=== PATIENT | female | born 1940 | race Caucasian/White ===

== ENCOUNTER 2023-12-21 12:55 | Emergency (ER) | payer MEDICARE, BC, MEDICAID, SELFPAY ==
--- NOTE | 2023-12-21 12:56 | XR_ITS ---
WS: [id number] Left hip, 2 views, AP pelvis, 12/21/2023 Clinical Data: injury Comparison: None. Findings: No fractures or dislocations are seen the left hip shows no fracture, erosion, narrowing, sclerosis o r fragmentation of the left femoral head. There is a left acetabular lip. The right acetabulum shows an acetabular lip. The soft tissues are not remarkable. The adjacent pelvis is normal. Impression: 1. Negative for left hip fracture. 2. 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 Tonnis classification: grade 1: sclerosis of femoral head and acetabulum or slight joint space narrow ing or slight lipping at joint margins
[2023-12-21 13:18] VITALS: BP 163/90; PULSE 83; RESP 18; TEMP 36.6; O2SAT 98
--- NOTE | 2023-12-21 13:53 | W.ED.EXTPRO ---
HPI - Extremity Problem General: Chief complaint: Extremity Injury, Lower Stated complaint: left side hip pains, sob Time Seen by Provider: 12/21/23 13:38 Source: patient and family Mode of arrival: wheelchair Limitations: no limitations History of Present Illness: Patient is a nice 83-year-old female presents to ED today along with her with a complaint of left hip pain. Patient states she is having a burning sensation to the left hip. She states it does seem to start near her left lower back and radiates down into the buttock. She states sometimes she will have pain shooting down her left leg. Pain seems to be worse with attempting ambulation. She has not noticed any numbness, tingling, loss of sensation to the leg. No saddle anesthesia or bowel or bladder dysfunction. She has not noticed any swelling to the leg. No color or temperature changes noted. Patient tells me she has not had any direct injury or trauma to the hip however triage note states that patient may have experienced a fall approximately a week ago. MD Complaint: joint pain Onset (ago): day(s) Pain Consistency: constant Location: left and lower extremity Quality: burning Radiation: distal Relieving factors: immobilization Exacerbating factors: weight bearing and walking Associated symptoms: Reports no associated symptoms; Deny chest pain, fever(s) or rash Review of Systems Const: Denies: fever(s), chills, body aches, fatigue or malaise Card: Denies: chest pain Resp: Denies: dyspnea GI: Denies: abdominal pain : Denies: flank pain, dysuria or hematuria Musc: Reports: back pain and joint pain; Denies: neck pain, extremity pain, extremity swelling, joint swelling, joint redness or joint warmth Skin/Breast: Denies: rash Neuro: Reports: difficulty walking; Denies: headache(s), numbness in extremities, weakness in extremities or sensory changes PFS ED PFSH: Medical History HTN (hypertension) Surgical History No pertinent past surgical history Physical Exam Const: COMMON NORMALS: average body habitus, no limitations, healthy appearing and well nourished GENERAL APPEARANCE: cooperative, well kempt, well developed and in distress (appears uncomfortable secondary to pain) Resp: COMMON NORMALS: normal respiratory effort and clear to auscultation bilaterally AUSCULTATION: clear to auscultation bilaterally Cardio: COMMON NORMALS: regular rate and regular rhythm RATE: regular rate RHYTHM: regular rhythm GI: COMMON NORMALS: Normal to inspection, nondistended, normoactive bowel sounds present, Soft to palpation and non-tender PALPATION: Yes Soft to palpation : COMMON NORMALS: Yes no CVA tenderness BLADDER/KIDNEY EXAM: Yes no CVA tenderness Back/Pelvis: COMMON NORMALS: no CVA tenderness, thoracic and lumbar spine normal to inspection and no thoracic nor lumbar tenderness LUMBAR SPINE/LOWER BACK: Yes lumbar ROM normal, No lumbar spinal tenderness, No paraspinal muscle spasm and Yes straight leg raise negative bilaterally PELVIS: Yes buttock abnormal Buttock abnormal laterality: left Left buttock abnormal details: tenderness and Yes sciatic notch tenderness on the left SACROILIAC JOINTS: Yes SI joint(s) abnormal SI joint details: tender to palpation (L) SACRUM: no tenderness COCCYX: no tenderness Extremity: COMMON NORMALS: normal to inspection, full ROM, capillary refill normal, no joint enlargement, no clubbing, cyanosis or edema, no calf tenderness and no pedal edema NARRATIVE EXTREMITY EXAM: distal pulses easily palpated Neuro: COMMON NORMALS: moves all extremities, no focal motor deficits and no sensory deficits noted GAIT: Yes Unable to assess gait Psych: APPEARANCE: Yes well kempt Skin: COMMON NORMALS: no rashes or lesions noted GENERAL SKIN EXAM: no rashes or lesions noted Course Vital Signs: Vital signs: Vital Signs Temperature 97.9 F 12/21/23 13:18 Pulse Rate 83 12/21/23 13:18 Respiratory Rate 18 12/21/23 13:18 Blood Pressure 163/90 12/21/23 13:18 Pulse Oximetry 98 12/21/23 13:18 Oxygen Delivery Me thod Room Air 12/21/23 13:18 MDM - Extremity (Nontraumatic) Medical Decision Making After medications patient reportedly feeling much improved. She was ambulatory here in the emergency department. DDx includes left lumbar radiculopathy with sciatica, left hip pain, bursitis. Will place her on steroids and muscle relaxers at home. She can continue to take OTC anti-inflammatories. Recommend follow-up with primary care in 1 to 2 weeks if symptoms persist. XR of the hip/pelvis showing no acute abnormalities. She does have osteoarthritic spurring and other degenerative/chronic changes. Medical Records I reviewed the patient's medical records. All radiology interpretation(s) finalized by discharge Discharge Plan Discharge Patient Disposition: Home Clinical Impression: Acute pain of left hip Condition: Stable Prescriptions: New cyclobenzaprine 10 mg tablet 10 mg PO TID Qty: 14 0RF Medrol (Abhijeet) 4 mg tablets,dose pack See Rx Instructions .ROUTE .COMPLEX Qty: 21 0RF Rx Instructions: orally per package directions Discharge Orders: Discharge ED (Routine); Ordered 12/21/23 Ordered By: Lydia Richmond Referrals: Kb Whyte, [Primary Care Provider] - Activity Restrictions/Additional Instructions: You may take [id number] anti-inflammatories such as ibuprofen (400-600 mg every 6-8 hours) in addition to the prescription medications given to you today to help with your discomfort. You may also try ice and heat. Please follow-up with your primary care provider in a week or so if pain does not seem to be improving. Coding Level of Care Code ED [employer] for Alexandre Lopez
[2023-12-21] MEDS: morphine 4 mg/mL SDV 1 mL IVP (14:18)
[2023-12-21] MEDS: dexamethasone 10 mg/mL INJ 8 MG IV (14:25)
[2023-12-21] MEDS: ketorolac 60 mg/2 mL INJ 15 MG IVP (14:26)
[2023-12-21] MEDS: orphenadrine 30 mg/mL Inj 2 mL 60 MG IV (14:27)
[2023-12-21] MEDS: ondansetron 2 mg/ML SDV 2 mL 4 MG IVP (14:48)
== END 2023-12-21 15:31 | disposition home or self-care (01) ==
PROVIDERS: Emergency Provider Physician Assistant; PCP Internal Medicine
DX: M25.552 Pain in left hip (principal); I10 Essential (primary) hypertension
CPT/HCPCS: 73502; 96374; 96375; 99284; J1100; J1885; J2270; J2360; J2405

== ENCOUNTER 2024-01-05 14:28 | Outpatient (CLI) | payer MEDICARE, BC, SELFPAY ==
--- NOTE | 2024-01-05 14:31 | XR_ITS ---
WS: [id number] SCREENING DEXA SCAN [email or web address] CLINICAL INFORMATION: OSTEOPOROSIS COMPARISON: None. FINDINGS: The L1-L4 bone mineral density measures 1.040 g/cm2. This corresponds to a T score score of -1.2 and Z score of 0.8. Left femoral neck bone mineral density measures 0.703 g/cm2. This corresponds to a T score of -2.4 an d Z score of -0.2. Right femoral neck bone mineral density measures 0.683 g/cm2. This corresponds to a T score -2.6of an d Z score of -0.4. Mean femoral neck bone mineral density measures 0.693 g/cm2. This corresponds to a T score of -2.5 an d Z score of -0.3. IMPRESSION: Osteopenia lumbar spine. Osteoporosis femoral necks. Patient's FRAX calculated 10 year probability for major osteoporotic fracture is 41.3% and osteoporot ic hip fracture is 31.0%.
== END 2024-01-05 14:29 | disposition home or self-care (01) ==
LOC: RAD 14:28
PROVIDERS: PCP Internal Medicine; Visit Provider Internal Medicine
DX: M81.0 Age-related osteoporosis without current pathological fracture (principal); M85.89 Other specified disorders of bone density and structure, multiple sites
CPT/HCPCS: 77080

== ENCOUNTER 2025-04-24 12:49 | Outpatient (CLI) | payer MEDICARE, BC, SELFPAY ==
--- NOTE | 2025-04-24 13:00 | CTR_ITS ---
PROCEDURE INFORMATION: Exam: CT Abdomen And Pelvis With Contrast Exam date and time: 04/24/2025 2:31 PM Age: 85 years old Clinical indication: Abdominal pain; Localized; Right upper quadrant (ruq); Prior surgery; Surgery date: 6+ months; Surgery type: Hyst. Colon, gb, hernia x 2; Additional info: Ruq pain TECHNIQUE: Imaging protocol: Computed tomography of the abdomen and pelvis with contrast. Radiation optimization: All CT scans at this facility use at least one of these dose optimization techniques: automated exposure control; mA and/or kV adjustment per patient size (includes targeted exams where dose is matched to clinical indication); or iterative reconstruction. Contrast material: OMNI 350; Contrast volume: 100 ml; Contrast route: INTRAVENOUS (IV); COMPARISON: CT abdomen pelvis w con* [id number] 01/21/2019 4:47 PM RADIATION DOSE METRICS: Total DLP (mGy-cm): 294.99 FINDINGS: Lungs: Lung bases are clear. No pleural effusion. Liver: Normal. No mass. Gallbladder and biliary ducts: The gallbladder has been resected. Pancreas: Normal. No ductal dilation. Spleen: Normal. No splenomegaly. Adrenal glands: Normal. No mass. Kidneys and ureters: Normal. No hydronephrosis. Stomach and bowel: Multiple diverticula involve the sigmoid colon. There is no sign of diverticulitis. Appendix: No evidence of appendicitis. Intraperitoneal space: Unremarkable. No free air. No significant fluid collection. Vasculature: Unremarkable. No abdominal aortic aneurysm. Lymph nodes: Unremarkable. No enlarged lymph nodes. Urinary bladder: Unremarkable as visualized. Reproductive: Unremarkable as visualized. Bones/joints: Unremarkable. No acute fracture. Soft tissues: Unremarkable. CT/CT abdomen pelvis w con* [id number] IMPRESSION: 1. No acute findings. 2. Sigmoid diverticulosis
[2025-04-24] MEDS: iohexol 350 mg/mL 500 mL Btl (per mL) PO (14:40)
[2025-04-24] MEDS: iohexol 350 mg/mL 500 mL Btl (per mL) IV (14:40)
== END 2025-04-24 12:50 | disposition home or self-care (01) ==
LOC: RAD 12:50
PROVIDERS: PCP Family Medicine; Visit Provider Family Medicine
DX: K57.30 Diverticulosis of large intestine without perforation or abscess without bleeding (principal)
CPT/HCPCS: 74177